=== PATIENT | male | born 1965 | race Two or more races ===

== ENCOUNTER 2020-12-18 10:33 | Inpatient (IN) | payer OTHER ==
[~2020-12-18] VITALS: Ht 167.6 cm; Wt 79.4 kg
[2020-12-22 15:31] VITALS: BP 127/68
[2020-12-22] MEDS ORDERED: ASCO500T10 PO (16:21)
[2020-12-22] MEDS ORDERED: NUT.237L70 PO (16:21)
[2020-12-22] MEDS ORDERED: CYAN-51 PO (16:21)
[2020-12-22] MEDS ORDERED: ACET-73 PO (16:21)
[2020-12-22] MEDS ORDERED: ATEN25TA PO (16:21)
[2020-12-22] MEDS ORDERED: ZINC220T3 PO (16:21)
[2020-12-22] MEDS ORDERED: FAMO20TA8 PO (16:21)
[2020-12-22] MEDS ORDERED: METF-442 PO (16:21)
[2020-12-22] MEDS ORDERED: MULT-594 PO (16:21)
[2020-12-22] MEDS ORDERED: LISI20TA30 PO (16:21)
[2020-12-22] MEDS ORDERED: ATOR40TA PO (16:21)
[2020-12-22] MEDS ORDERED: POLY119P2 PO (16:21)
[2020-12-22] MEDS ORDERED: OXYC5CAP18 PO (16:21)
[2020-12-22] MEDS ORDERED: VANC750F IV (16:21)
[2020-12-22] MEDS ORDERED: DEXTROSE 50% 50 ML DISP.SYRIN IV PRN (16:30)
[2020-12-22] MEDS: INSULIN REGULAR, HUMAN 300 UNIT/3 ML VIAL SQ PRN ×2 (17:16→21:01)
[2020-12-22] MEDS: BLOOD SUGAR DIAGNOSTIC 1 EACH STRIP VI SCH ×2 (17:36→20:59)
[2020-12-22] MEDS ORDERED: MIRALAX 17 GM POWD.PACK PO PRN (17:45)
[2020-12-22] MEDS ORDERED: OXYCODONE HCL 5 MG TABLET PO PRN (17:45)
[2020-12-22] MEDS: METFORMIN HCL 500 MG TABLET PO SCH (18:29)
[2020-12-22] MEDS ORDERED: NALOXONE HCL 0.4 MG/ML AMPUL IV PRN (19:30)
[2020-12-22 20:13] VITALS: BP 121/65
[2020-12-22] MEDS: GLUCERNA SHAKE 237 ML CAN PO SCH (20:59)
[2020-12-22] MEDS: ATORVASTATIN 40 MG TABLET PO SCH (20:59)
[2020-12-22] MEDS: OXYCODONE HCL 20 MG TAB.SR.12H PO SCH (21:02)
--- NOTE | 2020-12-22 21:27 | NUR ---
Received pt resting in bed. AAO x4. No acute distress noted. C/o 10/10 pain on the right foot. New order from Dr. Ramirez, Oxycontin 20mg Q8H around the clock and Dilaudid 4mg PO Q6H PRN. Order to D/C Oxyir 5mg. Carried out order. Due meds given as ordered. PICC line on right upper arm, patent and intact. Safety measures maintained. Call light and personal items within reach. Will continue to monitor.
[2020-12-23] MEDS ORDERED: VANCOMYCIN IV 750 MG in IV DEXTROSE 5% 250 ML IV SCH
[2020-12-23] MEDS: HYDROMORPHONE HCL 2 MG TABLET PO PRN ×3 (00:30→17:23)
[2020-12-23 04:50] VITALS: BP 118/70
[2020-12-23] MEDS: OXYCODONE HCL 20 MG TAB.SR.12H PO SCH ×3 (05:25→21:22)
[2020-12-23] MEDS: BLOOD SUGAR DIAGNOSTIC 1 EACH STRIP VI SCH ×4 (06:31→21:26)
[2020-12-23 07:08] LABS: BASOPHILS # (AUTO) 0.1 K/uL (0.0-8.0); BASOPHILS % (AUTO) 0.5 % (0.0-2.0); EOSINOPHILS # (AUTO) 0.3 K/uL (0.0-0.7); EOSINOPHILS % (AUTO) 1.9 % (0.0-7.0); HEMATOCRIT 24.9 % (36.7-47.1); HEMOGLOBIN 8.2 g/dL (12.5-16.3); LYMPHOCYTES # (AUTO) 2.3 K/uL (20.0-40.0); LYMPHOCYTES % (AUTO) 15.3 % (20.5-51.5); MEAN CORPUSCULAR HEMOGLOBIN 25.5 uug (23.8-33.4); MEAN CORPUSCULAR HGB CONC 33 g/dL (32.5-36.3); MEAN CORPUSCULAR VOLUME 77.8 fL (73.0-96.2); MONOCYTES # (AUTO) 1.9 K/uL (2.0-10.0); MONOCYTES % (AUTO) 12.9 % (0.0-11.0); NEUTROPHILS # (AUTO) 10.2 K/uL (1.8-8.9); NEUTROPHILS % (AUTO) 69.4 % (38.5-71.5); PLATELET COUNT (AUTO) 493 K/uL (152-348); WHITE BLOOD COUNT (AUTO) 14.7 K/uL (3.6-10.2)
[2020-12-23 07:30] LABS: BILIRUBIN,TOTAL 0.3 mg/dL (0.2-1.0); CREATININE 1.4 mg/dL (0.6-1.3); MAGNESIUM 2.3 mg/dL (1.8-2.4); PHOSPHOROUS 3.2 mg/dL (2.5-4.9); POTASSIUM 4.2 mmol/L (3.5-5.1); TOTAL PROTEIN, SERUM 6.5 g/dL (6.4-8.2)
[2020-12-23 07:31] LABS: THYROID STIMULATING HORMONE 6.512 mIU/mL (0.358-3.740)
[2020-12-23 08:16] LABS: VANCOMYCIN,RANDOM 23.1 ug/mL (18.0-26.0)
[2020-12-23] MEDS: METFORMIN HCL 500 MG TABLET PO SCH ×2 (08:22→17:14)
[2020-12-23] MEDS: ZINC SULFATE 220 MG CAPSULE PO SCH (08:22)
[2020-12-23] MEDS: MULTIVITAMINS,THERAPEUTIC TABLET PO SCH (08:23)
[2020-12-23] MEDS: LISINOPRIL 20 MG TABLET PO SCH (08:23)
[2020-12-23] MEDS: ASCORBIC ACID 250 MG TABLET PO SCH (08:24)
[2020-12-23] MEDS: CYANOCOBALAMIN 1,000 MCG TABLET PO SCH (08:24)
[2020-12-23] MEDS: ATENOLOL 25 MG TABLET PO SCH (08:24)
[2020-12-23] MEDS: FAMOTIDINE 20 MG TABLET PO SCH (08:26)
--- NOTE | 2020-12-23 08:30 | NUR ---
INSULIN COVERAGE GIVEN 4U FOR AM BS VERIFIED WITH CHINO ESCOBAR
[2020-12-23 09:21] LABS: EOSINOPHILS % (MANUAL) 1 % (0-8); LYMPHOCYTES % (MANUAL) 18 % (20-40); MONOCYTES % (MANUAL) 10 % (2-10); NEUTROPHILS % (MANUAL) 71 % (42-75)
--- NOTE | 2020-12-23 11:04 | NUR ---
PER [facility] D/AC NOTES. HE HAS A PODIATRY APPT 12/31/20 4499 AT [facility]. HAS TO F/U WITH PODIATRY AND I&D WITHIN 1-2 WEEKS TO SEE IF REQUIRES ADDITIONAL DEBRIDEMENT
[2020-12-23] MEDS: INSULIN REGULAR, HUMAN 300 UNIT/3 ML VIAL SQ PRN ×3 (11:52→21:58)
[2020-12-23 16:28] VITALS: BP 141/69
[2020-12-23] MEDS: VANCOMYCIN IV 1,250 MG in IV DEXTROSE 5% 250 ML IV SCH (17:19)
[2020-12-23 20:26] VITALS: BP 117/64
[2020-12-23] MEDS: ATORVASTATIN 40 MG TABLET PO SCH (21:21)
[2020-12-23] MEDS: GLUCERNA SHAKE 237 ML CAN PO SCH (21:22)
[2020-12-24 04:36] VITALS: BP 107/58
[2020-12-24] MEDS: BLOOD SUGAR DIAGNOSTIC 1 EACH STRIP VI SCH ×4 (06:44→20:51)
[2020-12-24] MEDS: OXYCODONE HCL 20 MG TAB.SR.12H PO SCH ×3 (06:47→21:00)
--- NOTE | 2020-12-24 07:01 | NUR ---
End of Shift: Patient is AOx4. No acute distress noted. C/o 7/10 pain on the right foot, gave Oxycotin, pain was relieved. Due meds given as ordered and tolerated well. PICC line on right upper arm, patent and intact. Safety measures maintained. Call light and personal items within reach. Will endorse accordingly.
[2020-12-24 08:00] VITALS: BP 100/55
[2020-12-24] MEDS: ZINC SULFATE 220 MG CAPSULE PO SCH (08:49)
[2020-12-24] MEDS: FAMOTIDINE 20 MG TABLET PO SCH (08:49)
[2020-12-24] MEDS: METFORMIN HCL 500 MG TABLET PO SCH ×2 (08:50→17:31)
[2020-12-24] MEDS: CYANOCOBALAMIN 1,000 MCG TABLET PO SCH (08:50)
[2020-12-24] MEDS: MULTIVITAMINS,THERAPEUTIC TABLET PO SCH (08:50)
[2020-12-24] MEDS: ASCORBIC ACID 250 MG TABLET PO SCH (08:50)
[2020-12-24] MEDS: MIRALAX 17 GM POWD.PACK PO SCH (08:50)
[2020-12-24] MEDS: INSULIN REGULAR, HUMAN 300 UNIT/3 ML VIAL SQ PRN ×4 (08:57→20:52)
[2020-12-24] MEDS: LISINOPRIL 20 MG TABLET PO SCH (09:00)
[2020-12-24] MEDS: ATENOLOL 25 MG TABLET PO SCH (09:00)
[2020-12-24 09:13] LABS: CREATININE 1.6 mg/dL (0.6-1.3); POTASSIUM 4.7 mmol/L (3.5-5.1)
--- NOTE | 2020-12-24 10:57 | NUR ---
Patient is alert and oriented x 4, denies of any pain, cooperative upon assessment. PICC line on LUIS ANTONIO patent and intact. Went off the unit for therapy and came back after an hour tolerated well. Patient on room saturating at 95% T: 97.9 axillary told patient that I will be back in 15 mins to check his temp again. skin is warm to touch.
[2020-12-24 15:09] LABS: *BILIRUBIN,URIN NEGATIVE (NEGATIVE); *BLOOD, URINE NEGATIVE (NEGATIVE); *CLARITY,URINE CLEAR (CLEAR); *COLOR,URINE YELLOW (YELLOW); *KETONES,URINE NEGATIVE (NEGATIVE); LEUKOCYTE ESTERASE ,URINE NEGATIVE (NEGATIVE); NITRITE, URINE NEGATIVE (NEGATIVE); PH,URINE 5.5 (5.0-8.0); UGLUCOSE NEGATIVE (NEGATIVE)
[2020-12-24 15:15] LABS: *CREATININE,URINE 112.4 mg/dL (30-125); *URINE TOTAL PROTEIN RANDOM 176.5 mg/dL (<150/24HR)
[2020-12-24 16:30] VITALS: BP 142/71
[2020-12-24] MEDS: VANCOMYCIN IV 1,250 MG in IV DEXTROSE 5% 250 ML IV SCH (17:59)
[2020-12-24] MEDS: HYDROMORPHONE HCL 2 MG TABLET PO PRN (18:56)
[2020-12-24 20:30] VITALS: BP 132/68
[2020-12-24 20:40] LABS: BACTERIA,URINE NONE SEEN /HPF (NONE SEEN); MUCUS,URINE FEW /LPF (0-FEW); RBC,URINE 0-3 /HPF (0-3); SQUAMOUS EPITHELIAL CELL,UR FEW /HPF (NONE SEEN); URINE AMORPHOUS URATE MODERATE /HPF
[2020-12-24] MEDS: ATORVASTATIN 40 MG TABLET PO SCH (20:48)
[2020-12-24] MEDS: GLUCERNA SHAKE 237 ML CAN PO SCH (20:53)
--- NOTE | 2020-12-24 22:30 | NUR ---
Patient is alert and oriented x 4, c/o 8/10 pain, cooperative upon assessment. PICC line on LUIS ANTONIO patent and intact infusing antibiotics, no adverse reactions noted. VSS. All due medication administered and tolerated well. All need attended too. Safety measures maintained. Call light within reach will continue plan of care.
[2020-12-25 04:42] VITALS: BP 126/63
[2020-12-25] MEDS: OXYCODONE HCL 20 MG TAB.SR.12H PO SCH ×3 (05:59→21:11)
[2020-12-25] MEDS: BLOOD SUGAR DIAGNOSTIC 1 EACH STRIP VI SCH ×4 (06:04→20:46)
[2020-12-25 06:51] LABS: BASOPHILS # (AUTO) 0.1 K/uL (0.0-8.0); BASOPHILS % (AUTO) 0.7 % (0.0-2.0); EOSINOPHILS # (AUTO) 0.2 K/uL (0.0-0.7); EOSINOPHILS % (AUTO) 1.6 % (0.0-7.0); HEMATOCRIT 23.8 % (36.7-47.1); HEMOGLOBIN 7.6 g/dL (12.5-16.3); LYMPHOCYTES # (AUTO) 1.3 K/uL (20.0-40.0); LYMPHOCYTES % (AUTO) 12.4 % (20.5-51.5); MEAN CORPUSCULAR HEMOGLOBIN 24.5 uug (23.8-33.4); MEAN CORPUSCULAR HGB CONC 32 g/dL (32.5-36.3); MEAN CORPUSCULAR VOLUME 76.9 fL (73.0-96.2); MONOCYTES # (AUTO) 1.2 K/uL (2.0-10.0); MONOCYTES % (AUTO) 11.3 % (0.0-11.0); PLATELET COUNT (AUTO) 407 K/uL (152-348)
[2020-12-25 06:56] LABS: BILIRUBIN,TOTAL 0.4 mg/dL (0.2-1.0); CREATININE 1.7 mg/dL (0.6-1.3); MAGNESIUM 2.3 mg/dL (1.8-2.4); PHOSPHOROUS 3.9 mg/dL (2.5-4.9); POTASSIUM 4.8 mmol/L (3.5-5.1); TOTAL PROTEIN, SERUM 6.9 g/dL (6.4-8.2); WHITE BLOOD COUNT (AUTO) 10.8 K/uL (3.6-10.2)
--- NOTE | 2020-12-25 07:26 | NUR ---
Lab notified me about albumin results of 1.5, will endorse.
[2020-12-25 08:00] VITALS: BP 133/70
[2020-12-25] MEDS: METFORMIN HCL 500 MG TABLET PO SCH ×2 (08:54→17:26)
[2020-12-25] MEDS: MULTIVITAMINS,THERAPEUTIC TABLET PO SCH (08:54)
[2020-12-25] MEDS: FAMOTIDINE 20 MG TABLET PO SCH (08:54)
[2020-12-25] MEDS: CYANOCOBALAMIN 1,000 MCG TABLET PO SCH (08:54)
[2020-12-25] MEDS: MIRALAX 17 GM POWD.PACK PO SCH (08:54)
[2020-12-25] MEDS: LISINOPRIL 20 MG TABLET PO SCH (08:55)
[2020-12-25] MEDS: ZINC SULFATE 220 MG CAPSULE PO SCH (08:55)
[2020-12-25] MEDS: ASCORBIC ACID 250 MG TABLET PO SCH (08:55)
[2020-12-25] MEDS: ATENOLOL 25 MG TABLET PO SCH (08:56)
[2020-12-25] MEDS: INSULIN REGULAR, HUMAN 300 UNIT/3 ML VIAL SQ PRN ×4 (08:58→20:54)
--- NOTE | 2020-12-25 10:00 | NUR ---
Received pt in bed, able to verbalize needs to this insurance underwriter sales in Georgian and Dutch. No acute distress, pt denies pain at this time. VSS. Pt seen participating in physical therapy, tolerated well. Pt presents with redness on left leg, right arm, denies itchiness. Per pt has been there for [address] on right foot. Wound care consult requested. LUIS ANTONIO midline patent and intact. Call light and belongings in reach. Will continue to monitor.
--- NOTE | 2020-12-25 12:06 | NUR ---
WOUND CARE CONSULT: PT SEEN FOR SKIN ASSESSMENT AND NOTED TO HAVE EDEMA TO BILATERAL LOWER LEGS WITH SOME INTACT AREAS OF EDEMA AND DISCOLORATION (INTACT) TO LEFT ANTERIOR ANKLE AREA. THERE IS A SURGICAL DRESSING TO RT FOOT WHICH IS DRY AND INTACT, PRESENT ON ADMISSION. SOME SKIN DISCOLORATION, TINY RED SPOTS NOTED TO WAIST AREA, LEFT CHEST WALL AREA AND LEFT LOWER LEG. DEFER TO PMD FOR SKIN CONDITION. RECOMMENDATIONS MADE FOR SKIN PROTECTION. DISCUSSED WITH NURSING STAFF. DPM CONSULT CALLED TO DR LOPEZ. DISCUSSED WITH NURSING STAFF AND EVENTS MANAGER. IN AGREEMENT WITH PLAN OF CARE.
--- NOTE | 2020-12-25 13:00 | NUR ---
Dr Claudio Moya at bedside this afternoon, examined pt, aware of redness noted. Dr. Snyder made aware of Albumin of 1.5, no new orders. Pertinent labs told and report given to Dr. Snyder, new orders in place.
[2020-12-25 15:12] VITALS: BP 123/63
--- NOTE | 2020-12-25 15:45 | NUR ---
Dr. Moffett at bedside this afternoon, examined pt. New orders in place. Continue to monitor.
[2020-12-25] MEDS ORDERED: CEFTRIAXONE 1 G in IV DEXTROSE 5% 50 ML IV SCH (18:30)
--- NOTE | 2020-12-25 18:45 | NUR ---
Dr. Soriano at bedside, examined pt.
[2020-12-25] MEDS: VANCOMYCIN IV 1,000 MG in IV DEXTROSE 5% 250 ML IV SCH (18:55)
--- NOTE | 2020-12-25 19:00 | NUR ---
Pts daughter Marla at bedside this afternoon. Per daughter, pt appeared to have some confusion. Dr. Snyder notified, and that pt's daughter would like to speak with him.
--- NOTE | 2020-12-25 19:10 | NUR ---
EOSS: Pt in bed, no acute distres, no reports of pain/discomfort at this time. All needs met at this time. VSS. Due medications given per order. Per pharmacy, Vanco trough 19.9, Vanco dose adjusted, OK to give per pharmacy. LUIS ANTONIO PICC line patent and intact. Per pt, no BM today. Call light and belongings within reach. Will endorse care to slot shift manager nurse.
[2020-12-25 20:30] VITALS: BP 131/63
[2020-12-25] MEDS: METRONIDAZOLE 500 MG/NS 100ML 500 MG in PREMIXED 1 EACH IV SCH (20:43)
[2020-12-25] MEDS: ATORVASTATIN 40 MG TABLET PO SCH (20:45)
[2020-12-25] MEDS: GLUCERNA SHAKE 237 ML CAN PO SCH (20:47)
[2020-12-25] MEDS: MUPIROCIN 2% OINT 22 GM TUBE TP SCH (20:47)
[2020-12-25] MEDS: CEFTRIAXONE 1 G in IV DEXTROSE 5% 50 ML IV SCH (21:18)
--- NOTE | 2020-12-26 00:53 | NUR ---
AAOx4 Needs attended. On IV ABT given as scheduled. Admitted for sepsis. Patient had I & D and partial amputation of right metatarsal. Dressing intact. Right upper arm PICC intact, flushed and patent. On pain management, Oxycontin 20 mg given as scheduled. No distress noted. Voiding well. VSS.
[2020-12-26] MEDS: METRONIDAZOLE 500 MG/NS 100ML 500 MG in PREMIXED 1 EACH IV SCH ×3 (03:50→21:09)
[2020-12-26 04:30] VITALS: BP 122/64
[2020-12-26] MEDS: OXYCODONE HCL 20 MG TAB.SR.12H PO SCH (05:28)
[2020-12-26] MEDS: BLOOD SUGAR DIAGNOSTIC 1 EACH STRIP VI SCH ×4 (06:35→21:03)
--- NOTE | 2020-12-26 07:00 | NUR ---
End of shift notes: Quiet night. AAOx4 On IV ABT given as scheduled. Tolerated well. No ill effects noted. Will monitor patient. Pain meds given at scheduled times. Relief noted. Right foot dressing intact. VSS.
[2020-12-26 07:16] LABS: CREATININE 1.8 mg/dL (0.6-1.3); POTASSIUM 5.1 mmol/L (3.5-5.1)
[2020-12-26] MEDS: INSULIN REGULAR, HUMAN 300 UNIT/3 ML VIAL SQ PRN ×4 (08:41→21:07)
[2020-12-26] MEDS: FAMOTIDINE 20 MG TABLET PO SCH (08:42)
[2020-12-26] MEDS: ZINC SULFATE 220 MG CAPSULE PO SCH (08:42)
[2020-12-26] MEDS: CYANOCOBALAMIN 1,000 MCG TABLET PO SCH (08:42)
[2020-12-26] MEDS: MULTIVITAMINS,THERAPEUTIC TABLET PO SCH (08:43)
[2020-12-26] MEDS: ASCORBIC ACID 250 MG TABLET PO SCH (08:43)
[2020-12-26] MEDS: METFORMIN HCL 500 MG TABLET PO SCH (08:43)
[2020-12-26] MEDS: MIRALAX 17 GM POWD.PACK PO SCH (08:44)
[2020-12-26] MEDS: LISINOPRIL 20 MG TABLET PO SCH (08:44)
[2020-12-26] MEDS: MUPIROCIN 2% OINT 22 GM TUBE TP SCH ×2 (08:46→21:08)
[2020-12-26] MEDS: ATENOLOL 25 MG TABLET PO SCH (09:43)
[2020-12-26] MEDS: SERTRALINE HCL 50 MG TABLET PO SCH (09:50)
--- NOTE | 2020-12-26 10:30 | NUR ---
Received pt in bed, able to verbalize needs to this adjusto writer operator in Serbian/Maori. No acute distress, pt denies pain at this time. VSS. Due medications given per order. LUIS ANTONIO PICC patent and intact. Call light and belongings in reach. Will continue to monitor.
[2020-12-26 10:45] VITALS: BP 153/76
--- NOTE | 2020-12-26 11:00 | NUR ---
Dr. Sierra at bedside this am, new orders in place. Refer to consult note.
[2020-12-26 11:07] LABS: A/G RATIO 0.4 (0.7-1.7); ALBUMIN 1.7 g/dL (2.9-4.4); ALPHA-1-GLOBULIN 0.4 g/dL (0.0-0.4); ALPHA-2-GLOBULIN 1.1 g/dL (0.4-1.0); GAMMA GLOBULIN 1.4 g/dL (0.4-1.8); M-SPIKE Not Observed g/dL (Not Observed)
--- NOTE | 2020-12-26 13:00 | NUR ---
Dr. Claudio Floresapaapryl at bedside this am, report given. Dr. Snyder aware of pertinent labs and that results of Extremity Venous and Extremity Arterial studies posted. Pt's daughter Luh's number given to Dr. Snyder. Continue to monitor.
--- NOTE | 2020-12-26 15:00 | NUR ---
Dr. Ramirez with new order for pain medication. Will carry out and monitor for effectiveness.
[2020-12-26] MEDS: OXYCODONE HCL 10 MG TAB.SR.12H PO SCH ×2 (15:43→21:08)
[2020-12-26 16:15] VITALS: BP 115/58
--- NOTE | 2020-12-26 16:50 | NUR ---
Dr. Moffett made aware of Extremity Venous and Extremity arterial results. Referred Dr. Moffett to [facility] Concrete Products Dispatcher Bam for continuation of care discussion. Refer to Concrete Products Dispatcher notes.
[2020-12-26] MEDS: VANCOMYCIN IV 1,000 MG in IV DEXTROSE 5% 250 ML IV SCH (17:04)
--- NOTE | 2020-12-26 17:30 | NUR ---
Pt's daughter Luh at bedside. Discussed nursing care with pt and daughter. Luh stated would like to speak with Dr. Sierra, contact information provided. Information on pt's f/u appt. provided.
--- NOTE | 2020-12-26 19:00 | NUR ---
EOSS: Pt in bed, no acute distress. All needs met at this time. VSS. Due medications given per order. Pt stated scheduled Oxycontin effective for pain, 2/10 on adult scale at this time. LUIS ANTONIO PICC line patent and intact. Wound care provided per order, R big toe wound measures 7.5cm x 2.5 cm by UTD. R bottom of foot measures 9 cm x 6.5 cm. Photos taken. Call light and belongings within reach. Will endorse care to cnc machinist 2nd shift nurse.
[2020-12-26 20:30] VITALS: BP 143/67
[2020-12-26] MEDS: ATORVASTATIN 40 MG TABLET PO SCH (20:56)
[2020-12-26] MEDS: QUETIAPINE FUMARATE 25 MG TABLET PO SCH (20:56)
[2020-12-26] MEDS: CEFTRIAXONE 1 G in IV DEXTROSE 5% 50 ML IV SCH (20:58)
[2020-12-26] MEDS: GLUCERNA SHAKE 237 ML CAN PO SCH (21:09)
--- NOTE | 2020-12-27 00:25 | NUR ---
AAOx4 Fall precautions maintained. VSS. Right upper PICC line flushed and patent. IV ABT given as scheduled. No side effects noted. Attended to needs. Continent/incontinent of urine at times. No complaints presented during the shift. Will monitor patient.
[2020-12-27] MEDS: METRONIDAZOLE 500 MG/NS 100ML 500 MG in PREMIXED 1 EACH IV SCH ×3 (03:39→20:34)
[2020-12-27 04:40] VITALS: BP 111/61
[2020-12-27] MEDS: OXYCODONE HCL 10 MG TAB.SR.12H PO SCH ×3 (05:24→21:43)
[2020-12-27 05:53] LABS: *OCCULT BLOOD STOOL NEGATIVE (NEGATIVE)
[2020-12-27] MEDS: BLOOD SUGAR DIAGNOSTIC 1 EACH STRIP VI SCH ×4 (06:35→21:54)
--- NOTE | 2020-12-27 06:36 | NUR ---
End of shift notes: Quiet night. AAOx3-4 VSS. No acute distress noted. Incontinent of BM x2 Kept clean and dry. Stool for occult blood sent. Denies any pain at this time. Oxycontin 10 mg given as scheduled. Right upper PICC intact, IV ABT given as scheduled. All needs attended and met. Fall precautions maintained.
[2020-12-27 07:06] LABS: CREATININE 1.9 mg/dL (0.6-1.3); POTASSIUM 4.8 mmol/L (3.5-5.1)
[2020-12-27 08:39] VITALS: BP 123/60
[2020-12-27] MEDS: MULTIVITAMINS,THERAPEUTIC TABLET PO SCH (09:02)
[2020-12-27] MEDS: MIRALAX 17 GM POWD.PACK PO SCH (09:02)
[2020-12-27] MEDS: CYANOCOBALAMIN 1,000 MCG TABLET PO SCH (09:02)
[2020-12-27] MEDS: FAMOTIDINE 20 MG TABLET PO SCH (09:02)
[2020-12-27] MEDS: ATENOLOL 25 MG TABLET PO SCH (09:02)
[2020-12-27] MEDS: ZINC SULFATE 220 MG CAPSULE PO SCH (09:02)
[2020-12-27] MEDS: SERTRALINE HCL 50 MG TABLET PO SCH (09:03)
[2020-12-27] MEDS: MUPIROCIN 2% OINT 22 GM TUBE TP SCH ×2 (09:05→21:44)
[2020-12-27] MEDS: INSULIN REGULAR, HUMAN 300 UNIT/3 ML VIAL SQ PRN ×4 (09:06→21:51)
[2020-12-27] MEDS: ASCORBIC ACID 250 MG TABLET PO SCH (09:12)
[2020-12-27 15:33] VITALS: BP 126/64
[2020-12-27] MEDS: VANCOMYCIN IV 1,000 MG in IV DEXTROSE 5% 250 ML IV SCH (17:38)
[2020-12-27 20:35] VITALS: BP 115/62
[2020-12-27] MEDS: QUETIAPINE FUMARATE 25 MG TABLET PO SCH (21:00)
[2020-12-27] MEDS: GLUCERNA SHAKE 237 ML CAN PO SCH (21:00)
--- NOTE | 2020-12-27 21:30 | NUR ---
Relayed to Dr. Ramirez patient's daughter, Sam, concern regarding pain medication being too strong causing drowsiness. Relayed to MD that patient was also started on Seroquel and Zoloft on 12/26/20. Per Dr. Ramriez, oxycontin dosage was reduced and drowsiness may be from psych meds. Called patient's daughter and explained. patient's daughter requested to hold off on giving seroquel for tonight and would like to speak with psych MD tomorrow. Will endorse to AM RN accordingly.
[2020-12-27] MEDS: ATORVASTATIN 40 MG TABLET PO SCH (21:42)
[2020-12-27] MEDS: CEFTRIAXONE 1 G in IV DEXTROSE 5% 50 ML IV SCH (21:43)
[2020-12-27] MEDS: IV NS 1000 ML 1,000 ML IV PRN (21:56)
[2020-12-28 02:35] LABS: *BILIRUBIN,URIN NEGATIVE (NEGATIVE); *BLOOD, URINE NEGATIVE (NEGATIVE); *CLARITY,URINE CLEAR (CLEAR); *COLOR,URINE YELLOW (YELLOW); *KETONES,URINE NEGATIVE (NEGATIVE); LEUKOCYTE ESTERASE ,URINE NEGATIVE (NEGATIVE); NITRITE, URINE NEGATIVE (NEGATIVE); UGLUCOSE NEGATIVE (NEGATIVE)
[2020-12-28 02:40] LABS: BACTERIA,URINE NONE SEEN /HPF (NONE SEEN); SQUAMOUS EPITHELIAL CELL,UR MODERATE /HPF (NONE SEEN); WBC,URINE 0-3 /HPF (0-3)
[2020-12-28 02:44] LABS: *CREATININE,URINE 41.8 mg/dL (30-125); *URINE TOTAL PROTEIN RANDOM 54.4 mg/dL (<150/24HR)
[2020-12-28] MEDS: METRONIDAZOLE 500 MG/NS 100ML 500 MG in PREMIXED 1 EACH IV SCH ×2 (04:32→12:45)
[2020-12-28 04:35] VITALS: BP 140/72
[2020-12-28] MEDS: OXYCODONE HCL 10 MG TAB.SR.12H PO SCH ×3 (05:16→21:03)
[2020-12-28] MEDS: BLOOD SUGAR DIAGNOSTIC 1 EACH STRIP VI SCH ×4 (06:31→20:42)
[2020-12-28 08:00] VITALS: BP 153/74
[2020-12-28] MEDS: MIRALAX 17 GM POWD.PACK PO SCH (08:46)
[2020-12-28] MEDS: ZINC SULFATE 220 MG CAPSULE PO SCH (08:46)
[2020-12-28] MEDS: ACETAMINOPHEN 325 MG TABLET PO PRN (08:47)
[2020-12-28] MEDS: ASCORBIC ACID 250 MG TABLET PO SCH (08:47)
[2020-12-28] MEDS: MULTIVITAMINS,THERAPEUTIC TABLET PO SCH (08:47)
[2020-12-28] MEDS: CYANOCOBALAMIN 1,000 MCG TABLET PO SCH (08:47)
[2020-12-28] MEDS: FAMOTIDINE 20 MG TABLET PO SCH (08:47)
[2020-12-28] MEDS: ATENOLOL 25 MG TABLET PO SCH (08:47)
[2020-12-28] MEDS: SERTRALINE HCL 50 MG TABLET PO SCH (08:48)
[2020-12-28] MEDS: MUPIROCIN 2% OINT 22 GM TUBE TP SCH ×2 (08:48→20:42)
[2020-12-28] MEDS: INSULIN REGULAR, HUMAN 300 UNIT/3 ML VIAL SQ PRN ×4 (08:49→20:46)
[2020-12-28 10:15] LABS: BASOPHILS # (AUTO) 0.1 K/uL (0.0-8.0); BASOPHILS % (AUTO) 0.6 % (0.0-2.0); EOSINOPHILS # (AUTO) 0.2 K/uL (0.0-0.7); EOSINOPHILS % (AUTO) 1.7 % (0.0-7.0); HEMATOCRIT 24.4 % (36.7-47.1); HEMOGLOBIN 8.1 g/dL (12.5-16.3); LYMPHOCYTES # (AUTO) 0.6 K/uL (20.0-40.0); LYMPHOCYTES % (AUTO) 6.1 % (20.5-51.5); MEAN CORPUSCULAR HEMOGLOBIN 25.2 uug (23.8-33.4); MEAN CORPUSCULAR HGB CONC 33 g/dL (32.5-36.3); MEAN CORPUSCULAR VOLUME 76.1 fL (73.0-96.2); MONOCYTES # (AUTO) 0.8 K/uL (2.0-10.0); MONOCYTES % (AUTO) 8.2 % (0.0-11.0); NEUTROPHILS # (AUTO) 8.4 K/uL (1.8-8.9); NEUTROPHILS % (AUTO) 83.4 % (38.5-71.5); PLATELET COUNT (AUTO) 450 K/uL (152-348); RED BLOOD CELL COUNT(AUTO) 3.21 MIL/uL (4.06-5.63); WHITE BLOOD COUNT (AUTO) 10.1 K/uL (3.6-10.2)
[2020-12-28 10:50] LABS: CREATININE 1.9 mg/dL (0.6-1.3); POTASSIUM 5.1 mmol/L (3.5-5.1)
[2020-12-28] MEDS: HYDROMORPHONE HCL 2 MG TABLET PO PRN ×2 (12:24→23:15)
--- NOTE | 2020-12-28 15:37 | NUR ---
patient is alert, oriented x4, no sob,resp even nonlabored, skin warm and dry to touch, right foot dressing is done, status post right big toe amputation, no drainage noted, no odor noted, right planter foot noted with necrotic tissue, patient is going or follow up apt with surgeon on Thursday and for angiogram in [place] on thursday, no distress noted
[2020-12-28 16:00] VITALS: BP 168/83
--- NOTE | 2020-12-28 17:49 | NUR ---
systolic blood pressure 163/[address] del cid, per MD griggs for now, continue to monitor, patient denied headach, or any other symptom
[2020-12-28] MEDS: VANCOMYCIN IV 1,000 MG in IV DEXTROSE 5% 250 ML IV SCH (18:22)
[2020-12-28 19:45] VITALS: BP 152/84
[2020-12-28] MEDS: ATORVASTATIN 40 MG TABLET PO SCH (20:41)
[2020-12-28] MEDS: QUETIAPINE FUMARATE 25 MG TABLET PO SCH (20:41)
[2020-12-28] MEDS: GLUCERNA SHAKE 237 ML CAN PO SCH (20:42)
[2020-12-28] MEDS: CEFTRIAXONE 1 G in IV DEXTROSE 5% 50 ML IV SCH (20:43)
[2020-12-28] MEDS: METRONIDAZOLE 500 MG TABLET PO SCH (21:03)
[2020-12-28] MEDS: IV NS 1000 ML 1,000 ML IV PRN (21:04)
--- NOTE | 2020-12-28 21:22 | NUR ---
Received pt resting in bed and watching tv. AAO x4. No acute distress noted. C/o 03/23 pain on the right foot, schedule pain med and other due meds given as ordered. LUIS ANTONIO PICC line, patent and intact. Safety measures maintained. Call light and personal items within reach. Will continue to monitor.
[2020-12-29 04:50] VITALS: BP 160/86
[2020-12-29] MEDS: METRONIDAZOLE 500 MG TABLET PO SCH ×3 (05:00→22:13)
[2020-12-29] MEDS: OXYCODONE HCL 10 MG TAB.SR.12H PO SCH (05:00)
[2020-12-29] MEDS: BLOOD SUGAR DIAGNOSTIC 1 EACH STRIP VI SCH ×4 (06:33→21:00)
[2020-12-29 08:00] VITALS: BP 123/75
[2020-12-29] MEDS: INSULIN REGULAR, HUMAN 300 UNIT/3 ML VIAL SQ PRN ×4 (08:09→22:11)
[2020-12-29] MEDS: FAMOTIDINE 20 MG TABLET PO SCH (08:13)
[2020-12-29] MEDS: CYANOCOBALAMIN 1,000 MCG TABLET PO SCH (08:13)
[2020-12-29] MEDS: MULTIVITAMINS,THERAPEUTIC TABLET PO SCH (08:13)
[2020-12-29] MEDS: ZINC SULFATE 220 MG CAPSULE PO SCH (08:13)
[2020-12-29] MEDS: ASCORBIC ACID 250 MG TABLET PO SCH (08:13)
[2020-12-29] MEDS: ATENOLOL 25 MG TABLET PO SCH (08:15)
[2020-12-29] MEDS: SERTRALINE HCL 50 MG TABLET PO SCH (08:16)
[2020-12-29] MEDS: MIRALAX 17 GM POWD.PACK PO SCH (08:16)
[2020-12-29] MEDS: MUPIROCIN 2% OINT 22 GM TUBE TP SCH ×2 (08:17→21:00)
[2020-12-29] MEDS: HYDROMORPHONE HCL 2 MG TABLET PO PRN ×2 (15:05→22:31)
[2020-12-29 15:48] VITALS: BP 177/88
--- NOTE | 2020-12-29 16:17 | NUR ---
Patient is alert, oriented x4, no sob, resp even nonlabored, skin warm and dry to touch, no distress noted, right foot dressing changed, no drainage or malodor at amputated site, however planter side of foot is with black skin ( necrosis tissue), left lower extremity noted with small open wound, tx done with Bactroban as ordered, continue to monitor
[2020-12-29] MEDS: IV NS 1000 ML 1,000 ML IV PRN (17:44)
[2020-12-29 18:03] VITALS: BP 145/88
[2020-12-29 20:36] VITALS: BP 169/80
[2020-12-29] MEDS: GLUCERNA SHAKE 237 ML CAN PO SCH (21:00)
[2020-12-29] MEDS: QUETIAPINE FUMARATE 25 MG TABLET PO SCH (21:00)
[2020-12-29] MEDS: ATORVASTATIN 40 MG TABLET PO SCH (21:00)
[2020-12-29] MEDS: CEFTRIAXONE 1 G in IV DEXTROSE 5% 50 ML IV SCH (21:54)
--- NOTE | 2020-12-29 22:00 | NUR ---
Received patient resting in bed watching television, AAO x4. No acute distress noted. C/o 6/10 pain on the right foot, schedule pain med and other due Pain medication administered as ordered. Accu-check done BS 256 insulin administered as per sliding scale. LUIS ANTONIO PICC line patent and intac continue on IVF and infused well. Assisted patient to bathroom with walker and assist back to bed, Call light and personal items within reach. Safety measures maintained. Will continue to monitor.
[2020-12-30] MEDS: IV NS 1000 ML 1,000 ML IV PRN (04:03)
[2020-12-30] MEDS: ACETAMINOPHEN 325 MG TABLET PO PRN (05:17)
--- NOTE | 2020-12-30 05:20 | NUR ---
Patient slept intermittently due to pain, non pharmacological efforts and PRN break through pain medication administered to relive pain,PRN pain meds helped encouraged fluids intake as tolerated accu-check done, BS- 216 will endorse am shift to provide insulin as per sliding scale patient refused seroquel qhs, ( held ) risk and benefits discussed respected patient rights. Will continue monitoring and endorse AM shift accordingly. safety precaution observed all time. Call light with in reach.
[2020-12-30 05:23] VITALS: BP 139/68
[2020-12-30] MEDS: METRONIDAZOLE 500 MG TABLET PO SCH ×2 (06:18→13:45)
[2020-12-30] MEDS: HYDROMORPHONE HCL 2 MG TABLET PO PRN ×3 (06:20→22:35)
[2020-12-30 06:33] LABS: CREATININE 1.5 mg/dL (0.6-1.3); POTASSIUM 4.4 mmol/L (3.5-5.1)
[2020-12-30] MEDS: BLOOD SUGAR DIAGNOSTIC 1 EACH STRIP VI SCH ×4 (06:46→20:50)
[2020-12-30 08:00] VITALS: BP 158/77
[2020-12-30] MEDS: CYANOCOBALAMIN 1,000 MCG TABLET PO SCH (08:15)
[2020-12-30] MEDS: ZINC SULFATE 220 MG CAPSULE PO SCH (08:15)
[2020-12-30] MEDS: MULTIVITAMINS,THERAPEUTIC TABLET PO SCH (08:15)
[2020-12-30] MEDS: FAMOTIDINE 20 MG TABLET PO SCH (08:15)
[2020-12-30] MEDS: ASCORBIC ACID 250 MG TABLET PO SCH (08:15)
[2020-12-30] MEDS: ATENOLOL 25 MG TABLET PO SCH (08:16)
[2020-12-30] MEDS: MIRALAX 17 GM POWD.PACK PO SCH ×2 (08:16→08:28)
[2020-12-30] MEDS: INSULIN REGULAR, HUMAN 300 UNIT/3 ML VIAL SQ PRN ×4 (08:18→20:52)
[2020-12-30] MEDS: MUPIROCIN 2% OINT 22 GM TUBE TP SCH ×2 (08:19→20:53)
[2020-12-30] MEDS: SERTRALINE HCL 50 MG TABLET PO SCH (08:27)
--- NOTE | 2020-12-30 09:34 | NUR ---
Received pt in bed, A&Ox4, able to verbalize needs. No acute distress. Pt states 0/10 pain on adult scale at this time. LUIS ANTONIO PICC patent and intact. Due medications given per order. Pt refused Miralax, Zoloft this am, explained purpose, risks, benefits, pt right to refuse respected. SENIOR FIRMWARE ENGINEER Jerome Vail at bedside with new orders, will carry out. Pt assisted safely to chair with OT to participate in therapy. Safety measures and fall precautions in place. Call light and belongings within reach. Will continue to monitor.
[2020-12-30 14:00] VITALS: BP 151/79
--- NOTE | 2020-12-30 17:15 | NUR ---
Dr. Coleman Soriano with new orders to prepare for pt's angiogram tomorrow, will endorse to qa consultant nurse.
--- NOTE | 2020-12-30 18:48 | NUR ---
EOSS: Assisted pt safely from bed to chair for dinner, daughter Luh at bedside. Discussed nursing care provided with pt and daughter. Pt in no acute distress, denies pain/discomfort at this time. Due medications given per order, no a/r noted. Wound care provided per order, both heels offloaded. Per pt, 2 BMs today. All needs met at this time. Call light and belongings within reach. Safety measures maintained. Will endorse care to paper final inspector nurse.
[2020-12-30] MEDS ORDERED: VANCOMYCIN IV 1,000 MG in IV DEXTROSE 5% 250 ML IV SCH (19:00)
[2020-12-30 20:09] VITALS: BP 155/80
[2020-12-30] MEDS: GLUCERNA SHAKE 237 ML CAN PO SCH (20:49)
[2020-12-30] MEDS: ATORVASTATIN 40 MG TABLET PO SCH (20:49)
[2020-12-30] MEDS: QUETIAPINE FUMARATE 25 MG TABLET PO SCH (20:50)
[2020-12-30] MEDS ORDERED: VANCOMYCIN IV 200 ML ONE (22:34)
[2020-12-31] MEDS ORDERED: IV NS 1000 ML 1,000 ML IV ONE
--- NOTE | 2020-12-31 02:36 | NUR ---
Received pt resting in bed. AAO x4. No acute distress noted. C/o 03/23 pain, Administered Dilaudid PRN, effective. All due medications administered and tolerated well. BS-310, covered per insulin sliding scale. patient refused Seroquel, risk and benefits discussed. Safety measures maintained. VSS. Right upper PICC line flushed and patent. IV ABT given as scheduled. No adverse effects noted. Attended to needs. Will continue plan of care.
[2020-12-31 04:26] VITALS: BP 152/64
[2020-12-31 06:03] LABS: BASOPHILS # (AUTO) 0.1 K/uL (0.0-8.0); BASOPHILS % (AUTO) 1.3 % (0.0-2.0); EOSINOPHILS # (AUTO) 0.2 K/uL (0.0-0.7); EOSINOPHILS % (AUTO) 1.7 % (0.0-7.0); HEMATOCRIT 23.9 % (36.7-47.1); HEMOGLOBIN 7.8 g/dL (12.5-16.3); LYMPHOCYTES # (AUTO) 1.4 K/uL (20.0-40.0); LYMPHOCYTES % (AUTO) 14.9 % (20.5-51.5); MEAN CORPUSCULAR HEMOGLOBIN 25.1 uug (23.8-33.4); MEAN CORPUSCULAR HGB CONC 33 g/dL (32.5-36.3); MEAN CORPUSCULAR VOLUME 76.8 fL (73.0-96.2); MONOCYTES % (AUTO) 9.9 % (0.0-11.0); NEUTROPHILS % (AUTO) 72.2 % (38.5-71.5); PLATELET COUNT (AUTO) 531 K/uL (152-348); RED BLOOD CELL COUNT(AUTO) 3.11 MIL/uL (4.06-5.63); WHITE BLOOD COUNT (AUTO) 9.7 K/uL (3.6-10.2)
[2020-12-31] MEDS: BLOOD SUGAR DIAGNOSTIC 1 EACH STRIP VI SCH ×4 (06:21→21:00)
[2020-12-31 06:36] LABS: CREATININE 1.4 mg/dL (0.6-1.3); MAGNESIUM 2.1 mg/dL (1.8-2.4); PHOSPHOROUS 3.9 mg/dL (2.5-4.9); POTASSIUM 4.3 mmol/L (3.5-5.1)
[2020-12-31 07:54] VITALS: BP 175/89
[2020-12-31] MEDS: FAMOTIDINE 20 MG TABLET PO SCH (08:14)
[2020-12-31] MEDS: MIRALAX 17 GM POWD.PACK PO SCH (08:14)
[2020-12-31] MEDS: CYANOCOBALAMIN 1,000 MCG TABLET PO SCH (08:16)
[2020-12-31] MEDS: MULTIVITAMINS,THERAPEUTIC TABLET PO SCH (08:16)
[2020-12-31] MEDS: ATENOLOL 25 MG TABLET PO SCH (08:16)
[2020-12-31] MEDS: ASCORBIC ACID 250 MG TABLET PO SCH (08:16)
[2020-12-31] MEDS: ZINC SULFATE 220 MG CAPSULE PO SCH (08:17)
[2020-12-31] MEDS: MUPIROCIN 2% OINT 22 GM TUBE TP SCH ×2 (08:17→21:00)
--- NOTE | 2020-12-31 09:23 | NUR ---
patient's systolic blood pressure has been noted above 160s, administered morning dose tenormin 25mg, rechecked blood pressure still systolic 175, called dr dewey office for advise spoke to justine dewey is in the procedure, she is going to let doctor zuleima know about it.
--- NOTE | 2020-12-31 11:00 | NUR ---
Patient is alert, oriented x4, no sob, resp even nonlabored, skin warm and dry to touch, ambulatory, patient left for angiogram of right leg in [place], [facility] sent with patient, patient blood pressure reported to dr del cid, with no orders, patient denied any symptoms such as no dizzi, or headache. family is aware as well that patient is going for angiogram to day [facility]
[2020-12-31] MEDS: VANCOMYCIN IV 1,250 MG in IV DEXTROSE 5% 250 ML IV SCH (16:59)
--- NOTE | 2020-12-31 17:00 | NUR ---
patient is out of pass for angiogram in [facility]
[2020-12-31] MEDS: GLUCERNA SHAKE 237 ML CAN PO SCH (21:00)
[2020-12-31] MEDS: ATORVASTATIN 40 MG TABLET PO SCH (21:00)
--- NOTE | 2021-01-01 03:01 | NUR ---
Not in the unit at this time. Still out on pass for an scheduled procedure.
[2021-01-01] MEDS: BLOOD SUGAR DIAGNOSTIC 1 EACH STRIP VI SCH ×4 (06:20→21:22)
[2021-01-01] MEDS: FAMOTIDINE 20 MG TABLET PO SCH (09:00)
[2021-01-01] MEDS: CYANOCOBALAMIN 1,000 MCG TABLET PO SCH (09:00)
[2021-01-01] MEDS: ATENOLOL 25 MG TABLET PO SCH (09:00)
[2021-01-01] MEDS: MULTIVITAMINS,THERAPEUTIC TABLET PO SCH (09:00)
[2021-01-01] MEDS: MIRALAX 17 GM POWD.PACK PO SCH (09:00)
[2021-01-01] MEDS: MUPIROCIN 2% OINT 22 GM TUBE TP SCH ×2 (09:00→21:23)
[2021-01-01] MEDS: ASCORBIC ACID 250 MG TABLET PO SCH (09:00)
[2021-01-01] MEDS: ZINC SULFATE 220 MG CAPSULE PO SCH (09:00)
[2021-01-01] MEDS: VANCOMYCIN IV 1,250 MG in IV DEXTROSE 5% 250 ML IV SCH (17:00)
--- NOTE | 2021-01-01 18:46 | NUR ---
Pt remained off unit for entirety of shift. Pt out on pass for Balloon Angioplasty at [facility]. Pt will return this evening, pickup time 1830. Received report from January at [facility]. Will endorse to night coordinator nurse.
[2021-01-01 20:30] VITALS: BP 155/81
[2021-01-01] MEDS: ATORVASTATIN 40 MG TABLET PO SCH (21:22)
[2021-01-01] MEDS: INSULIN REGULAR, HUMAN 300 UNIT/3 ML VIAL SQ PRN (21:23)
[2021-01-01] MEDS: GLUCERNA SHAKE 237 ML CAN PO SCH (21:23)
--- NOTE | 2021-01-01 22:15 | NUR ---
Pt back on the unit via [place] form [facility] @1999 s/p Right popliteal artery Balloon angioplasty by Dr. Soriano 12/31, tolerated well. Received pt resting in bed. AAO x4. No acute distress noted. C/o 03/23 pain, Administered Dilaudid PRN, effective. IV 20 G right hand, patent and intact. Scheduled Vancomycin was given @ [facility]. All due medications administered and tolerated well. BS 215, covered per insulin sliding scale. Safety measures maintained. Needs attended to promptly. Per nurse endorsement wound consult ordered. VSS. Right upper PICC line not able to flush. Will continue plan of care.
[2021-01-01] MEDS: HYDROMORPHONE HCL 2 MG TABLET PO PRN (22:31)
[2021-01-01] MEDS ORDERED: IV D5/ 0.9% NACL 1,000 ML IV PRN (22:45)
[2021-01-02 04:15] VITALS: BP 158/77
[2021-01-02] MEDS: GLIMEPIRIDE 2 MG TABLET PO SCH ×2 (06:15→15:33)
[2021-01-02] MEDS: BLOOD SUGAR DIAGNOSTIC 1 EACH STRIP VI SCH ×4 (06:20→20:32)
[2021-01-02 08:00] VITALS: BP_SYST 167; BP_SYST 179; BP_DIAS 76; BP_DIAS 90
[2021-01-02] MEDS: INSULIN REGULAR, HUMAN 300 UNIT/3 ML VIAL SQ PRN ×4 (08:06→20:35)
[2021-01-02] MEDS: ZINC SULFATE 220 MG CAPSULE PO SCH (08:07)
[2021-01-02] MEDS: MULTIVITAMINS,THERAPEUTIC TABLET PO SCH (08:07)
[2021-01-02] MEDS: MIRALAX 17 GM POWD.PACK PO SCH (08:07)
[2021-01-02] MEDS: FAMOTIDINE 20 MG TABLET PO SCH (08:07)
[2021-01-02] MEDS: CYANOCOBALAMIN 1,000 MCG TABLET PO SCH (08:07)
[2021-01-02] MEDS: ASCORBIC ACID 250 MG TABLET PO SCH (08:09)
[2021-01-02] MEDS: ATENOLOL 25 MG TABLET PO SCH (08:16)
[2021-01-02] MEDS: MUPIROCIN 2% OINT 22 GM TUBE TP SCH ×2 (08:32→20:36)
--- NOTE | 2021-01-02 09:49 | NUR ---
Received pt in bed, A&Ox4, able to verbalize needs in Danish and Slovak. No acute distress. Pt denies pain at this time. R hand 20 g PIV patent and intact. Due medications given per order, no a/r noted. Dr. Lemus aware of pt's return from [facility], new orders in place, will carry out. Pt safely assisted to restroom with PT. Safety measures and fall precautions in place. Call light and belongings within reach. Will continue to monitor.
--- NOTE | 2021-01-02 11:29 | NUR ---
WOUND CARE CONSULT: PT PRESENTS WITH BONY SACRAL AREA AND SACRAL DIMPLE (NOTED TO BE PRESENT ON ADMISSION. PT ALSO HAS SURGICAL SITE TO RT GREAT TOE AND DRY BLACK NECROTIC TISSUE TO PLANTAR RT FOOT, PRESENT ON ADMISSION. ORDERS CLARIFIED WITH DR LOPEZ FOR WOUND CARE OF RT FOOT. RECOMMENDATIONS MADE FOR SKIN PROTECTION. DISCUSSED WITH NURSING STAFF. IN AGREEMENT WITH PLAN OF CARE. Addendum: 01/02/21 at 1131 by LAURA AHMADI RN Amended: Links added.
[2021-01-02 12:00] VITALS: BP 151/84
[2021-01-02] MEDS: HYDROMORPHONE HCL 2 MG TABLET PO PRN (12:09)
--- NOTE | 2021-01-02 13:00 | NUR ---
Per pt's , pt would like a shower. Confirmed with Katty Ramirez and Michael that pt may shower as long as right foot is covered with watertight seal, both in agreement. Will endorse to OT that pt may shower today.
[2021-01-02 16:00] VITALS: BP 157/83
[2021-01-02] MEDS: VANCOMYCIN IV 1,250 MG in IV DEXTROSE 5% 250 ML IV SCH (16:26)
--- NOTE | 2021-01-02 16:47 | NUR ---
ID CLOTH PRINTING BACK TENDER Rubina Lovell at bedside this afternoon, notified CLOTH PRINTING BACK TENDER that PICC is no longer flushing. Per CLOTH PRINTING BACK TENDER, OK for PICC underliner to declog PICC line, order in place. College And Career Counselor notified per protocol.
--- NOTE | 2021-01-02 18:36 | NUR ---
EOSS: Pt is bed, no acute distress, at bedside. Discussed nursing care with pt and . All needs met. Pt denies pain/discomfort at this time. Due medications given per order, no a/r noted. Pt received shower with OT today. Wound care provided per order, photos taken, both heels offloaded. Dr. Hedy HOFFMANN at bedside this afternoon, spoke with pt and , new orders in place. Notified Dr. Lemus of pts BP of 167/76 and 157/83 today, new order in place. Call light and belongings within reach. Safety measures maintained. Will endorse care to bicycle designer nurse.
--- NOTE | 2021-01-02 19:40 | NUR ---
In bed, awake, alert and oriented, watching TV at this time. Calm, denies any pain/discomforts at this time. Right foot dressing dry and intact, elevated with pillow. Safety measures and fall prevention maintained. Continue plan of care.
[2021-01-02 20:00] VITALS: BP 150/76
[2021-01-02] MEDS: ATORVASTATIN 40 MG TABLET PO SCH (20:28)
[2021-01-02] MEDS: GLUCERNA SHAKE 237 ML CAN PO SCH (20:29)
[2021-01-03] VITALS (9 sets, daily range): BP systolic 142–174; BP diastolic 69–92
--- NOTE | 2021-01-03 05:47 | NUR ---
Shift End Report: VS stable. Slept well. All needs attended and met. No complaint presented. No significant event reported all night. Continue current rehab plan of care.
[2021-01-03 06:01] LABS: CREATININE 1.2 mg/dL (0.6-1.3); POTASSIUM 3.9 mmol/L (3.5-5.1)
[2021-01-03 06:11] LABS: BASOPHILS # (AUTO) 0.1 K/uL (0.0-8.0); BASOPHILS % (AUTO) 1.5 % (0.0-2.0); EOSINOPHILS # (AUTO) 0.2 K/uL (0.0-0.7); EOSINOPHILS % (AUTO) 2.4 % (0.0-7.0); HEMATOCRIT 22.9 % (36.7-47.1); LYMPHOCYTES # (AUTO) 1.5 K/uL (20.0-40.0); LYMPHOCYTES % (AUTO) 19.6 % (20.5-51.5); MEAN CORPUSCULAR HEMOGLOBIN 24.5 uug (23.8-33.4); MEAN CORPUSCULAR HGB CONC 32 g/dL (32.5-36.3); MONOCYTES # (AUTO) 0.6 K/uL (2.0-10.0); MONOCYTES % (AUTO) 8.2 % (0.0-11.0); NEUTROPHILS # (AUTO) 5.1 K/uL (1.8-8.9); NEUTROPHILS % (AUTO) 68.3 % (38.5-71.5); PLATELET COUNT (AUTO) 515 K/uL (152-348); RED BLOOD CELL COUNT(AUTO) 3.02 MIL/uL (4.06-5.63); WHITE BLOOD COUNT (AUTO) 7.5 K/uL (3.6-10.2)
[2021-01-03 06:12] LABS: HEMOGLOBIN 7.4 g/dL (12.5-16.3)
[2021-01-03] MEDS: hydrALAZINE HCL 25 MG TABLET PO PRN ×2 (06:46→21:25)
[2021-01-03] MEDS: BLOOD SUGAR DIAGNOSTIC 1 EACH STRIP VI SCH ×4 (06:50→20:21)
[2021-01-03] MEDS: FAMOTIDINE 20 MG TABLET PO SCH (08:39)
[2021-01-03] MEDS: ATENOLOL 50 MG TABLET PO SCH (08:43)
[2021-01-03] MEDS: MULTIVITAMINS,THERAPEUTIC TABLET PO SCH (08:44)
[2021-01-03] MEDS: GLIMEPIRIDE 2 MG TABLET PO SCH ×2 (08:44→16:49)
[2021-01-03] MEDS: MIRALAX 17 GM POWD.PACK PO SCH (08:44)
[2021-01-03] MEDS: ZINC SULFATE 220 MG CAPSULE PO SCH (08:44)
[2021-01-03] MEDS: ASCORBIC ACID 250 MG TABLET PO SCH (08:44)
[2021-01-03] MEDS: CYANOCOBALAMIN 1,000 MCG TABLET PO SCH (08:44)
[2021-01-03] MEDS: MUPIROCIN 2% OINT 22 GM TUBE TP SCH ×2 (08:45→20:14)
[2021-01-03] MEDS: VANCOMYCIN IV 1,250 MG in IV DEXTROSE 5% 250 ML IV SCH (10:41)
[2021-01-03] MEDS: INSULIN REGULAR, HUMAN 300 UNIT/3 ML VIAL SQ PRN ×3 (11:34→21:01)
--- NOTE | 2021-01-03 16:30 | NUR ---
Patient in bed lying comfortably, BP rechecked 142/69 with no complain of any pain or discomfort.
--- NOTE | 2021-01-03 18:31 | NUR ---
Dr. Lemus in the unit, informed MD regarding hgb result of 7.4. Dr. Lemus ordered to transfuse 1 unit PRBC.
--- NOTE | 2021-01-03 19:40 | NUR ---
In bed, awake, alert, watching TV with daughter at this time in room. Denies any pain/discomforts at this time. Right foot dressing clean, dry and intact. Safety measures and fall prevention maintained. Continue care as planned.
[2021-01-03] MEDS: GLUCERNA SHAKE 237 ML CAN PO SCH (20:14)
[2021-01-03] MEDS: ATORVASTATIN 40 MG TABLET PO SCH (20:14)
--- NOTE | 2021-01-03 21:04 | NUR ---
Blood transfusion initiated as ordered. VS taken . Will monitor.
--- NOTE | 2021-01-03 23:30 | NUR ---
Blood transfusion completed without s/s of adverse reaction noted. Patient tolerated procedure well.
--- NOTE | 2021-01-04 | NUR ---
NPO after midnight initiated. Patient fully aware about the scheduled procedure.
[2021-01-04 04:00] VITALS: BP 166/72
[2021-01-04] MEDS: VANCOMYCIN IV 1,250 MG in IV DEXTROSE 5% 250 ML IV SCH ×2 (04:21→22:44)
[2021-01-04] MEDS: hydrALAZINE HCL 25 MG TABLET PO PRN (04:34)
--- NOTE | 2021-01-04 04:36 | NUR ---
BP 177/72. Denies any s/s of HTN. Apresoline 25 mg given with sips of water. Will monitor.
[2021-01-04 06:21] VITALS: BP 168/80
[2021-01-04] MEDS: BLOOD SUGAR DIAGNOSTIC 1 EACH STRIP VI SCH ×4 (06:29→21:05)
--- NOTE | 2021-01-04 06:32 | NUR ---
Shift End Report. Kept NPO as ordered for right foot excision debridement for today. No complaint presented all night. Tolerated blood transfusion last night without s/s of adverse reaction. . All needs attended and met.
[2021-01-04] MEDS ORDERED: BACITRACIN 50,000 UNITS VIAL ONE (06:51)
[2021-01-04] MEDS ORDERED: LIDOCAINE HCL 1% 20 ML VIAL ONE (06:51)
[2021-01-04] MEDS ORDERED: MIDAZOLAM HCL 2 MG/2 ML VIAL ONE (07:26)
[2021-01-04] MEDS ORDERED: FENTANYL CITRATE 250 MCG/5 ML AMPUL ONE (07:27)
[2021-01-04] MEDS ORDERED: POLYMYXIN B SULFATE 500,000 UNITS, BACITRACIN 50,000 UNITS, NORMAL SALINE 20 ML MC ONE (07:45)
--- NOTE | 2021-01-04 07:47 | NUR ---
received patient AOx4 calm, cooperative , patient is scheduled for right toe debridement , patient on vancomiycin IV, on a piccline, patient BP was at 170/80 , MD aware and OR staff aware, patient last apresoline was given at 0430, patient appears to be in good spirit and prepared for his surgery, patient was picked up by OR staff Renetta , transferered to OR
[2021-01-04 08:00] VITALS: BP 175/82
[2021-01-04] MEDS ORDERED: BUPIVACAINE PF 0.5% 30 ML VIAL ONE (08:26)
[2021-01-04] MEDS: ASCORBIC ACID 250 MG TABLET PO SCH (09:00)
[2021-01-04] MEDS: GLIMEPIRIDE 2 MG TABLET PO SCH ×2 (09:00→16:04)
[2021-01-04] MEDS: CYANOCOBALAMIN 1,000 MCG TABLET PO SCH (09:00)
[2021-01-04] MEDS: MUPIROCIN 2% OINT 22 GM TUBE TP SCH ×2 (09:00→21:00)
[2021-01-04] MEDS: ATENOLOL 50 MG TABLET PO SCH (09:00)
[2021-01-04] MEDS: ZINC SULFATE 220 MG CAPSULE PO SCH (09:00)
[2021-01-04] MEDS: FAMOTIDINE 20 MG TABLET PO SCH (09:00)
[2021-01-04] MEDS: MULTIVITAMINS,THERAPEUTIC TABLET PO SCH (09:00)
[2021-01-04] MEDS: MIRALAX 17 GM POWD.PACK PO SCH (09:00)
[2021-01-04 11:13] VITALS: BP 158/83
[2021-01-04] MEDS: HYDROMORPHONE HCL 2 MG TABLET PO PRN ×2 (11:13→17:35)
--- NOTE | 2021-01-04 11:17 | NUR ---
patient returned from surgery, transferred via his Bed accompanied by 2 staff, patient alert, oriented x3, patient with PICC line on his LUIS ANTONIO and with right feet on wound vacc, S/P Right foot excisional debridement , called and notified MD with orders to resume previous orders and diet orders was resumed, patient verbalizes of pain and requested of pain medication, pain meds given , will continue monitor
[2021-01-04] MEDS: INSULIN REGULAR, HUMAN 300 UNIT/3 ML VIAL SQ PRN ×3 (11:48→21:02)
--- NOTE | 2021-01-04 14:58 | NUR ---
seen patient in the room attached to wound Vacc, non compliant with diet, patient eating some sandwich from his , educated patient regarding blood sugar control, will continue follow up
[2021-01-04 15:37] VITALS: BP 152/82
--- NOTE | 2021-01-04 16:38 | NUR ---
RECEIVED REPORT FROM ALFONZO MAGANA. PATIENT IN BED AWAKE AND AOX4. PATIENT RT. FOOT EDEMA PRESENT. RT. FOOT ELEVATED WITH PILLOW AND CONNECTED TO WOUND VAC PER ORDER. DRAINING SEROSANG. FLUID. PATIENT COMPLAINING OF RT. FOOT PAIN. SAFETY AND FALL PREVENTION IN PLACE. WILL CONTINUE TO MONITOR.
[2021-01-04] MEDS ORDERED: NALOXONE HCL 0.4 MG/ML AMPUL IV PRN (17:45)
[2021-01-04 20:27] VITALS: BP 176/83
[2021-01-04] MEDS: ATORVASTATIN 40 MG TABLET PO SCH (20:52)
[2021-01-04] MEDS: GLUCERNA SHAKE 237 ML CAN PO SCH (20:53)
[2021-01-04] MEDS: OXYCODONE HCL 10 MG TAB.SR.12H PO SCH (21:00)
[2021-01-04] MEDS ORDERED: HYDROMORPHONE 1 MG/1 ML DISP.SYRIN IV ONE (21:15)
--- NOTE | 2021-01-04 22:00 | NUR ---
Pt refused initial oxycontin and prefers dilaudid IV for pain. referred to dr Maldonado and ordered with one time dilaudid; educated pt and pt's daughter regarding pain management and breakthrough pain. needs attended.
--- NOTE | 2021-01-05 03:22 | NUR ---
pt's vanco trough is 21, vanco iv held; gave report to Hansa who will assume care.
--- NOTE | 2021-01-05 04:57 | NUR ---
aao x4 OOB to bedside commode wit supervision. BM noted. Voiding well in the urinal. denies any pain nor any discomfort. S/P right foot debridement, dressing clean dry and intact with hemovac in place draining serosanguinous drainage, Will monitor patient.Denies any pain at this time.
[2021-01-05 05:43] VITALS: BP 162/80
[2021-01-05] MEDS: HYDROMORPHONE HCL 2 MG TABLET PO PRN (05:48)
[2021-01-05 06:28] LABS: CREATININE 1.3 mg/dL (0.6-1.3)
[2021-01-05] MEDS: BLOOD SUGAR DIAGNOSTIC 1 EACH STRIP VI SCH ×4 (06:33→20:45)
--- NOTE | 2021-01-05 06:52 | NUR ---
End of shift notes: Patient complaining pain on the right foot medicated with dilaudid 4mg po as ordered. Daughter called requesting if patient can get IV Dilaudid for pain. Told her it was only one time dose that her father received since he was post debridement of the right foot 01/04/21 per MD's order. Patient will monitor for relief. BM noted this shift. Wound vac functioning well.
--- NOTE | 2021-01-05 07:25 | NUR ---
Received awake and watching tv, joking with nurse. Denies pain. Said he slept well due to pain medication given last night. IV intact and patent. Dressing on right foot intact, wound vac noted intact and draining. Patient is cooperative. Safety measures maintained. Kept comfortable. Will continue to monitor.
[2021-01-05 08:00] VITALS: BP 165/80
[2021-01-05] MEDS: CYANOCOBALAMIN 1,000 MCG TABLET PO SCH (08:20)
[2021-01-05] MEDS: MULTIVITAMINS,THERAPEUTIC TABLET PO SCH (08:20)
[2021-01-05] MEDS: FAMOTIDINE 20 MG TABLET PO SCH (08:21)
[2021-01-05] MEDS: GLIMEPIRIDE 2 MG TABLET PO SCH ×2 (08:21→16:44)
[2021-01-05] MEDS: OXYCODONE HCL 10 MG TAB.SR.12H PO SCH ×2 (08:21→20:42)
[2021-01-05] MEDS: ZINC SULFATE 220 MG CAPSULE PO SCH (08:21)
[2021-01-05] MEDS: ASCORBIC ACID 250 MG TABLET PO SCH (08:21)
[2021-01-05] MEDS: ATENOLOL 50 MG TABLET PO SCH (08:22)
[2021-01-05] MEDS: MIRALAX 17 GM POWD.PACK PO SCH (08:26)
[2021-01-05] MEDS ORDERED: PROPOFOL 200 MG/20 ML BOTTLE IV ONE (11:41)
[2021-01-05] MEDS ORDERED: METOCLOPRAMIDE HCL 10 MG/2 ML VIAL IV ONE (11:41)
[2021-01-05] MEDS ORDERED: ONDANSETRON 4 MG/2 ML VIAL IV ONE (11:41)
[2021-01-05] MEDS ORDERED: SEVOFLURANE 250 ML BOTTLE IH ONE (11:41)
[2021-01-05] MEDS ORDERED: CEFAZOLIN 1 G VIAL MC ONE (11:41)
[2021-01-05] MEDS: INSULIN REGULAR, HUMAN 300 UNIT/3 ML VIAL SQ PRN ×3 (11:59→20:49)
[2021-01-05] MEDS: VANCOMYCIN IV 1,500 MG in IV DEXTROSE 5% 500 ML IV SCH (12:13)
[2021-01-05 16:00] VITALS: BP 155/73
--- NOTE | 2021-01-05 18:53 | NUR ---
Patient is alert and oriented. Denies pain. Visited by his daughter this afternoon, spoke with Dr. Ramirez, no complaints. Due meds given and tolerated. Wound vac functioning properly. Patient education given regarding keeping blood sugar wnl. Patient verbalized understanding. Needs attended. Safety precautions in place. Will endorse accordingly.
[2021-01-05 19:49] VITALS: BP 165/77
[2021-01-05] MEDS: ATORVASTATIN 40 MG TABLET PO SCH (20:42)
[2021-01-05] MEDS: GLUCERNA SHAKE 237 ML CAN PO SCH (21:08)
--- NOTE | 2021-01-05 21:12 | NUR ---
Patient in resting in bed. AALOx4. On Ra saturating well.c/o pain on right foot with dressing intact s/p amputation with wound vac functioning well.Routine pain medication given with good effect.Midline on right upper arm patent and intact.Continue safety measures .Call light with in reach.
[2021-01-06] MEDS: hydrALAZINE HCL 25 MG TABLET PO PRN (01:03)
[2021-01-06 05:20] VITALS: BP 159/75
[2021-01-06] MEDS: BLOOD SUGAR DIAGNOSTIC 1 EACH STRIP VI SCH ×4 (06:33→20:15)
[2021-01-06 06:42] LABS: BASOPHILS # (AUTO) 0.1 K/uL (0.0-8.0); BASOPHILS % (AUTO) 1.3 % (0.0-2.0); EOSINOPHILS # (AUTO) 0.3 K/uL (0.0-0.7); EOSINOPHILS % (AUTO) 3.6 % (0.0-7.0); HEMATOCRIT 24.8 % (36.7-47.1); HEMOGLOBIN 8.1 g/dL (12.5-16.3); LYMPHOCYTES # (AUTO) 1.5 K/uL (20.0-40.0); LYMPHOCYTES % (AUTO) 20.5 % (20.5-51.5); MEAN CORPUSCULAR HEMOGLOBIN 25.5 uug (23.8-33.4); MEAN CORPUSCULAR HGB CONC 33 g/dL (32.5-36.3); MEAN CORPUSCULAR VOLUME 77.9 fL (73.0-96.2); MONOCYTES # (AUTO) 1.4 K/uL (2.0-10.0); MONOCYTES % (AUTO) 19.4 % (0.0-11.0); NEUTROPHILS # (AUTO) 4.1 K/uL (1.8-8.9); NEUTROPHILS % (AUTO) 55.2 % (38.5-71.5); PLATELET COUNT (AUTO) 361 K/uL (152-348); RED BLOOD CELL COUNT(AUTO) 3.18 MIL/uL (4.06-5.63); WHITE BLOOD COUNT (AUTO) 7.4 K/uL (3.6-10.2)
[2021-01-06 06:48] LABS: BILIRUBIN,TOTAL 0.2 mg/dL (0.2-1.0); CREATININE 1.3 mg/dL (0.6-1.3); PHOSPHOROUS 3.8 mg/dL (2.5-4.9); POTASSIUM 3.8 mmol/L (3.5-5.1); TOTAL PROTEIN, SERUM 6.7 g/dL (6.4-8.2)
--- NOTE | 2021-01-06 07:35 | NUR ---
Alert and oriented x4, awake watching tv. Mild discomfort only during movement. Slept well per patient. Right foot dressing and wound vac intact and functioning properly. LUIS ANTONIO picc line intact and patent. No signs of infiltration. Bed is low and locked. Patient is comfortable. Call light in reach. Will monitor.
[2021-01-06 08:01] LABS: EOSINOPHILS % (MANUAL) 6 % (0-8); LYMPHOCYTES % (MANUAL) 34 % (20-40); MONOCYTES % (MANUAL) 4 % (2-10); MYELOCYTES % 1 % (0-0); NEUTROPHILS % (MANUAL) 55 % (42-75)
[2021-01-06] MEDS: ATENOLOL 50 MG TABLET PO SCH (08:12)
[2021-01-06 08:13] VITALS: BP 186/86
[2021-01-06] MEDS: ZINC SULFATE 220 MG CAPSULE PO SCH (08:13)
[2021-01-06] MEDS: GLIMEPIRIDE 2 MG TABLET PO SCH ×2 (08:13→16:51)
[2021-01-06] MEDS: CYANOCOBALAMIN 1,000 MCG TABLET PO SCH (08:13)
[2021-01-06] MEDS: FAMOTIDINE 20 MG TABLET PO SCH (08:13)
[2021-01-06] MEDS: OXYCODONE HCL 10 MG TAB.SR.12H PO SCH ×2 (08:14→20:10)
[2021-01-06] MEDS: MULTIVITAMINS,THERAPEUTIC TABLET PO SCH (08:14)
[2021-01-06] MEDS: MIRALAX 17 GM POWD.PACK PO SCH (08:14)
[2021-01-06] MEDS: ASCORBIC ACID 250 MG TABLET PO SCH (08:14)
[2021-01-06] MEDS: INSULIN REGULAR, HUMAN 300 UNIT/3 ML VIAL SQ PRN ×3 (11:48→20:29)
[2021-01-06] MEDS: VANCOMYCIN IV 1,500 MG in IV DEXTROSE 5% 500 ML IV SCH (11:48)
[2021-01-06 15:41] VITALS: BP 165/73
--- NOTE | 2021-01-06 16:20 | NUR ---
BP 165/73. No s/sx of htn. Verbalized he's fine but having some pain in the right foot. Rechecked bp noted 123/81.
[2021-01-06 16:30] VITALS: BP 123/81
[2021-01-06] MEDS: HYDROMORPHONE HCL 2 MG TABLET PO PRN (16:52)
--- NOTE | 2021-01-06 19:15 | NUR ---
Alert and oriented, denies pain. Voiding well in urinal yellow urine. Wound vac intact and working properly. Iv intact and patent. No adverse reaction noted. Bed is low and locked. Call light and personal belongings in reach. Needs attended. Endorsed accordingly.
[2021-01-06] MEDS: GLUCERNA SHAKE 237 ML CAN PO SCH (20:08)
[2021-01-06] MEDS: ATORVASTATIN 40 MG TABLET PO SCH (20:08)
[2021-01-06 20:20] VITALS: BP 157/77
[2021-01-07 04:26] VITALS: BP 155/73
[2021-01-07] MEDS: hydrALAZINE HCL 25 MG TABLET PO PRN ×3 (04:37→20:41)
[2021-01-07 05:15] VITALS: BP 146/67
--- NOTE | 2021-01-07 06:28 | NUR ---
Pt slept throughout the night, denies pain at this time. Wound VAC on right foot patent and draining serosanguineous fluid. Denies any discomfort. B/P was elevated at 0400H vitals so Hydralazine was given, pt tolerated well. Bed is locked and in lowest position, call light within reach. No other issues or concerns at this time, will endorse to day shift.
[2021-01-07] MEDS: BLOOD SUGAR DIAGNOSTIC 1 EACH STRIP VI SCH ×4 (06:35→20:14)
[2021-01-07 06:53] LABS: CREATININE 1.4 mg/dL (0.6-1.3); POTASSIUM 3.8 mmol/L (3.5-5.1)
[2021-01-07] MEDS: ZINC SULFATE 220 MG CAPSULE PO SCH (08:22)
[2021-01-07] MEDS: MULTIVITAMINS,THERAPEUTIC TABLET PO SCH (08:22)
[2021-01-07] MEDS: FAMOTIDINE 20 MG TABLET PO SCH (08:22)
[2021-01-07] MEDS: ASCORBIC ACID 250 MG TABLET PO SCH (08:23)
[2021-01-07] MEDS: CYANOCOBALAMIN 1,000 MCG TABLET PO SCH (08:23)
[2021-01-07] MEDS: MIRALAX 17 GM POWD.PACK PO SCH (08:23)
[2021-01-07] MEDS: GLIMEPIRIDE 2 MG TABLET PO SCH ×2 (08:23→16:49)
[2021-01-07] MEDS: OXYCODONE HCL 10 MG TAB.SR.12H PO SCH ×2 (08:25→20:08)
[2021-01-07] MEDS: ATENOLOL 50 MG TABLET PO SCH (08:27)
[2021-01-07 09:58] VITALS: BP 145/72
[2021-01-07] MEDS: VANCOMYCIN IV 1,500 MG in IV DEXTROSE 5% 500 ML IV SCH (11:52)
[2021-01-07] MEDS: INSULIN REGULAR, HUMAN 300 UNIT/3 ML VIAL SQ PRN ×3 (11:56→20:16)
--- NOTE | 2021-01-07 14:19 | NUR ---
WOUND CARE CONSULT: RT FOOT [facility] WOUND VAC DRESSING CHANGE DONE PER DPM ORDER: SKIN PREP AND VAC DRAPE TO PERIWOUND AREAS, SUTURE AREAS PROTECTED WITH OIL EMULSION DSG, GRANUFOAM TO WOUND (2 PIECES USED). VAC AT 125mm Hg CONTINUOUS SETTING. ABD PADS USED WITH KERLIX (TUBING PROTECTED). PT TOLERATED WELL. WILL FOLLOW.
[2021-01-07 15:40] VITALS: BP 181/92
--- NOTE | 2021-01-07 17:33 | NUR ---
Informed Dr. Lemus regarding elevated BP 181/92 given PRN Apresoline as ordered but BP remained elevated 181/83. Dr. Lemus ordered Norvasc 5mg PO Q12hrs first dose now.
[2021-01-07] MEDS: AMLODIPINE 5 MG TABLET PO SCH ×3 (17:48→22:18)
[2021-01-07] MEDS: ATORVASTATIN 40 MG TABLET PO SCH (20:08)
[2021-01-07 20:12] VITALS: BP 164/87
[2021-01-07] MEDS: GLUCERNA SHAKE 237 ML CAN PO SCH (20:13)
[2021-01-07 22:10] VITALS: BP 159/77
[2021-01-08 04:12] VITALS: BP 153/66
--- NOTE | 2021-01-08 05:33 | NUR ---
Pt slept throughout the night with no complaints. Denies having SOB at this time. B/P elevated at beginning of shift so PRN Apresoline given to patient. B/P went down to 159/77. Denies chest pain or headaches at this time, states that this is his baseline when not in the hospital. Wound VAC intact on patient's R foot. PICC line flushed and patent. Bed is locked and in lowest position, call light within reach. No other issues or concerns at this time, will endorse to day shift.
[2021-01-08] MEDS: hydrALAZINE HCL 25 MG TABLET PO PRN (06:04)
[2021-01-08] MEDS: BLOOD SUGAR DIAGNOSTIC 1 EACH STRIP VI SCH ×4 (06:39→21:05)
[2021-01-08 06:47] VITALS: BP 149/74
[2021-01-08 07:31] VITALS: BP 153/77
[2021-01-08] MEDS: AMLODIPINE 5 MG TABLET PO SCH ×2 (09:27→20:54)
[2021-01-08] MEDS: ZINC SULFATE 220 MG CAPSULE PO SCH (09:27)
[2021-01-08] MEDS: MULTIVITAMINS,THERAPEUTIC TABLET PO SCH (09:28)
[2021-01-08] MEDS: ASCORBIC ACID 250 MG TABLET PO SCH (09:28)
[2021-01-08] MEDS: CYANOCOBALAMIN 1,000 MCG TABLET PO SCH (09:28)
[2021-01-08] MEDS: ATENOLOL 50 MG TABLET PO SCH (09:28)
[2021-01-08] MEDS: MIRALAX 17 GM POWD.PACK PO SCH (09:28)
[2021-01-08] MEDS: GLIMEPIRIDE 2 MG TABLET PO SCH ×2 (09:28→17:22)
[2021-01-08] MEDS: FAMOTIDINE 20 MG TABLET PO SCH (09:28)
[2021-01-08] MEDS: OXYCODONE HCL 10 MG TAB.SR.12H PO SCH ×2 (09:30→20:55)
[2021-01-08] MEDS: INSULIN REGULAR, HUMAN 300 UNIT/3 ML VIAL SQ PRN ×3 (12:35→21:09)
--- NOTE | 2021-01-08 12:36 | NUR ---
WOUND CARE FOLLOW UP: KCI VAC TO RT FOOT FUNCTIONING WELL AT 125mmHg CONTINUOUS SETTING. NEXT DRESSING CHANGE PLANNED FOR TOMORROW.
[2021-01-08 15:44] VITALS: BP 127/70
[2021-01-08] MEDS ORDERED: VANCOMYCIN IV 1,250 MG in IV DEXTROSE 5% 250 ML IV SCH (17:00)
--- NOTE | 2021-01-08 17:00 | NUR ---
Patient remains alert, oriented x 4, not in any form of distress. He denies any pain or discomfort. Vital signs stable. Patient participated with PT, OT and tolerated well. Assisted with his needs promptly. Call light and frequently used items placed within patient's reach. PICC line intact and patent, no signs of infections. Wound vac in place on right foot functioning well.
[2021-01-08] MEDS: ATORVASTATIN 40 MG TABLET PO SCH (20:54)
[2021-01-08] MEDS: GLUCERNA SHAKE 237 ML CAN PO SCH (20:57)
[2021-01-08 21:00] VITALS: BP 157/78
[2021-01-08 23:57] VITALS: BP 175/86
[2021-01-09 04:07] VITALS: BP 152/71
--- NOTE | 2021-01-09 05:12 | NUR ---
Received pt resting in bed. No acute distress noted. VSS. All due medication administered as scheduled. Unable to flush PICC line, charge nurse aware. C/o 6/10 pain, right toe. Administered scheduled OxyContin. Needs attend to Wound VAC intact on patient's R foot. PICC line flushed and patent. Safety measures in place. Will continue plan of care. .
[2021-01-09] MEDS: BLOOD SUGAR DIAGNOSTIC 1 EACH STRIP VI SCH ×4 (06:37→20:47)
[2021-01-09 07:33] VITALS: BP 148/77
[2021-01-09 08:28] LABS: BASOPHILS # (AUTO) 0.1 K/uL (0.0-8.0); BASOPHILS % (AUTO) 1.4 % (0.0-2.0); EOSINOPHILS # (AUTO) 0.3 K/uL (0.0-0.7); EOSINOPHILS % (AUTO) 3.9 % (0.0-7.0); HEMOGLOBIN 8.7 g/dL (12.5-16.3); LYMPHOCYTES # (AUTO) 1.4 K/uL (20.0-40.0); LYMPHOCYTES % (AUTO) 20.4 % (20.5-51.5); MEAN CORPUSCULAR HEMOGLOBIN 25.3 uug (23.8-33.4); MEAN CORPUSCULAR HGB CONC 32 g/dL (32.5-36.3); MEAN CORPUSCULAR VOLUME 78.2 fL (73.0-96.2); MONOCYTES # (AUTO) 1.9 K/uL (2.0-10.0); MONOCYTES % (AUTO) 28.2 % (0.0-11.0); NEUTROPHILS # (AUTO) 3.1 K/uL (1.8-8.9); NEUTROPHILS % (AUTO) 46.1 % (38.5-71.5); PLATELET COUNT (AUTO) 327 K/uL (152-348); RED BLOOD CELL COUNT(AUTO) 3.45 MIL/uL (4.06-5.63); WHITE BLOOD COUNT (AUTO) 6.8 K/uL (3.6-10.2)
[2021-01-09 08:42] LABS: BILIRUBIN,TOTAL 0.2 mg/dL (0.2-1.0); CREATININE 1.3 mg/dL (0.6-1.3); POTASSIUM 5.3 mmol/L (3.5-5.1); TOTAL PROTEIN, SERUM 7.5 g/dL (6.4-8.2)
[2021-01-09] MEDS: GLIMEPIRIDE 2 MG TABLET PO SCH ×2 (09:21→16:39)
[2021-01-09] MEDS: MULTIVITAMINS,THERAPEUTIC TABLET PO SCH (09:21)
[2021-01-09] MEDS: ZINC SULFATE 220 MG CAPSULE PO SCH (09:21)
[2021-01-09] MEDS: AMLODIPINE 5 MG TABLET PO SCH ×2 (09:21→20:44)
[2021-01-09] MEDS: ASCORBIC ACID 250 MG TABLET PO SCH (09:21)
[2021-01-09] MEDS: FAMOTIDINE 20 MG TABLET PO SCH (09:21)
[2021-01-09] MEDS: CYANOCOBALAMIN 1,000 MCG TABLET PO SCH (09:21)
[2021-01-09] MEDS: ATENOLOL 50 MG TABLET PO SCH (09:22)
[2021-01-09] MEDS: OXYCODONE HCL 10 MG TAB.SR.12H PO SCH ×2 (09:23→20:45)
[2021-01-09] MEDS: MIRALAX 17 GM POWD.PACK PO SCH (09:23)
--- NOTE | 2021-01-09 09:49 | NUR ---
DEVOPS DEVELOPER Jerome Vail at bedside, aware of pts lab values, new order in place. Notified DEVOPS DEVELOPER pts PICC line clogged, per DEVOPS DEVELOPER, OK for PICC line team to unclog line, order in place. Notified Hose Builder per protocol. Pt stable at this time, with PT in therpy. VSS. Due medications given per order. Wound Vac in place, draining. Safety maintained. Will carry out orders and continue to monitor.
[2021-01-09] MEDS ORDERED: SODIUM POLYSTYRENE SULFONATE 15 G/60 ML LIQUID UDC PO ONE (10:00)
[2021-01-09] MEDS: INSULIN REGULAR, HUMAN 300 UNIT/3 ML VIAL SQ PRN ×3 (12:31→20:51)
--- NOTE | 2021-01-09 12:32 | NUR ---
WOUND CARE FOLLOW UP: PT SEEN FOR RT FOOT WOUND VAC DRESSING CHANGE. DR HALLIAN IN TO SEE PT AND WOUND WAS DEBRIDED AT BEDSIDE. PT TOLERATED WELL. SKIN PREP AND VAC DRAPE USED FOR PERIWOUND AREAS. OIL EMULSION DRESSING APPLIED TO SUTURES ORDERED. 2 PIECES OF GRANUFOAM USED. VAC AT 125mmHg CONTINUOUS SETTING. ABD PADS AND KERLIX APPLIED, USING CARE NOT TO WRAP VAC TUBING. ORDERS RECEIVED FOR DRESSING CHANGE UPON DISCHARGE (REMOVE ALL VAC DRESSINGS AND APPLY SALINE-MOISTENED GAUZE, ABD PAD AND WRAP WITH KERLIX). DISCUSSED WITH NURSING STAFF. PT TOLERATED WELL.
--- NOTE | 2021-01-09 12:34 | NUR ---
Dr. Knott DPM at bedside this afternoon, R foot wound debridement performed DPM. Consent signed and placed in chart. Wound care nurse at bedside and changed Wound Vac per order. Photos taken for chart. Pt tolerated well, no complaints at this time. Continue to monitor.
--- NOTE | 2021-01-09 13:06 | NUR ---
Charge nurse able to unclog PICC line. HOSPICE MASSAGE THERAPIST Jerome aVil notified, order to unclog PICC cancelled. Electrochemist notified. Continue to monitor.
[2021-01-09 15:32] VITALS: BP 150/75
[2021-01-09 16:44] LABS: BAND % (MANUAL) 2 % (0-10); EOSINOPHILS % (MANUAL) 9 % (0-8); LYMPHOCYTES % (MANUAL) 12 % (20-40); MONOCYTES % (MANUAL) 15 % (2-10); NEUTROPHILS % (MANUAL) 62 % (42-75)
--- NOTE | 2021-01-09 17:23 | NUR ---
PICC line occluded at this time. MD Dr. Zapata notified. Per ALBERTO PATEL for PICC line team to assess site. If unable to unclog, new PICC may be inserted Per MD. PICC line team to come jennifer, Carbon Printer aware. Pt reported discomfort at L hand 22 gauge IV site. IV removed, catheter intact, no shearing noted. No redness, swelling, signs of infiltration noted. 1700 Vancomycin unable to be administered at this time d/t no working IV site, pharmacy notified.
[2021-01-09 18:34] VITALS: BP 161/80
[2021-01-09] MEDS: hydrALAZINE HCL 25 MG TABLET PO PRN (18:39)
[2021-01-09] MEDS: HYDROMORPHONE HCL 2 MG TABLET PO PRN (18:39)
--- NOTE | 2021-01-09 18:53 | NUR ---
End of shift note: Pt in no acute distress at this time. PICC team not on unit at this time, PICC line continues to be occluded. Pt reported 6/10 pain in right foot, PRN Dilaudid given per order. Pt's BP 161/80, HR 77. PRN Hydralazine administered per order. Pt received shower today with OT, tolerated well. Pt with possible discharge tomorrow. Will endorse care to ceramic engineer nurse.
[2021-01-09 20:09] VITALS: BP 144/70
--- NOTE | 2021-01-09 20:41 | NUR ---
PICC line insertion on KINJAL x 2 lumen done without any problem. PICC line intact and patent. Patient tolerated procedure well.
[2021-01-09] MEDS: GLUCERNA SHAKE 237 ML CAN PO SCH (20:45)
[2021-01-09] MEDS: ATORVASTATIN 40 MG TABLET PO SCH (20:45)
--- NOTE | 2021-01-09 20:53 | NUR ---
Chest Xray done at bedside as ordered for PICC line placement.
[2021-01-09] MEDS ORDERED: VANCOMYCIN IV 1,250 MG in IV DEXTROSE 5% 250 ML IV SCH (22:00)
[2021-01-10 04:12] VITALS: BP 154/71
[2021-01-10] MEDS: BLOOD SUGAR DIAGNOSTIC 1 EACH STRIP VI SCH ×2 (05:44→11:30)
--- NOTE | 2021-01-10 06:18 | NUR ---
Shift End Report: Vs stable. Slept good. No s/s of hypo/hyperglycemia. No s/s of adverse reaction noted from Vancomycin IV. KINJAL PICC line intact and patent. No significant event reported all night. All needs attended and met. Continue current rehab plan of care.
[2021-01-10 07:36] VITALS: BP 170/83
[2021-01-10] MEDS: FAMOTIDINE 20 MG TABLET PO SCH (08:16)
[2021-01-10] MEDS: AMLODIPINE 5 MG TABLET PO SCH (08:16)
[2021-01-10] MEDS: ZINC SULFATE 220 MG CAPSULE PO SCH (08:16)
[2021-01-10] MEDS: CYANOCOBALAMIN 1,000 MCG TABLET PO SCH (08:16)
[2021-01-10] MEDS: GLIMEPIRIDE 2 MG TABLET PO SCH (08:16)
[2021-01-10] MEDS: ASCORBIC ACID 250 MG TABLET PO SCH (08:16)
[2021-01-10] MEDS: MULTIVITAMINS,THERAPEUTIC TABLET PO SCH (08:16)
[2021-01-10] MEDS: OXYCODONE HCL 10 MG TAB.SR.12H PO SCH (08:17)
[2021-01-10] MEDS: ATENOLOL 50 MG TABLET PO SCH (08:17)
[2021-01-10] MEDS: MIRALAX 17 GM POWD.PACK PO SCH (08:27)
[2021-01-10] MEDS: INSULIN REGULAR, HUMAN 300 UNIT/3 ML VIAL SQ PRN (11:34)
[2021-01-10 14:57] VITALS: BP 139/60
--- NOTE | 2021-01-10 15:22 | NUR ---
d/c to [facility].transported via ambulance. report given to melissa gerard. explain need for f/u appt and phone number for md provided and f/u for drsg orders. phone number for md provided. explain to pt and caregiver. verbalized understanding. d/c pics taken yesterday by rajani
== END 2021-01-10 15:00 | DRG 862 ==
LOC: MEDSURG3 12-22 14:14
PROVIDERS: ADMIT Physical Medicine & Rehabilitation Pain Medicine; ATTEND Physical Medicine & Rehabilitation Pain Medicine
PROC: B548ZZA Ultrasonography of Superior Vena Cava, Guidance (ICD-10-PCS; principal; 2021-01-09)
PROC: 30233N1 Transfusion of Nonautologous Red Blood Cells into Peripheral Vein, Percutaneous Approach (ICD-10-PCS; principal; 2021-01-09)
PROC: 02HV33Z Insertion of Infusion Device into Superior Vena Cava, Percutaneous Approach (ICD-10-PCS; principal; 2021-01-09)
DX: Z47.81 Encounter for orthopedic aftercare following surgical amputation (principal); N17.0 Acute kidney failure with tubular necrosis; E43 Unspecified severe protein-calorie malnutrition; A41.9 Sepsis, unspecified organism; A48.0 Gas gangrene; D68.59 Other primary thrombophilia; E11.22 Type 2 diabetes mellitus with diabetic chronic kidney disease; E11.40 Type 2 diabetes mellitus with diabetic neuropathy, unspecified; F32.3 Major depressive disorder, single episode, severe with psychotic features; E11.52 Type 2 diabetes mellitus with diabetic peripheral angiopathy with gangrene; E11.69 Type 2 diabetes mellitus with other specified complication; M86.9 Osteomyelitis, unspecified; Z79.4 Long term (current) use of insulin; E66.9 Obesity, unspecified; Z89.411 Acquired absence of right great toe; D64.9 Anemia, unspecified; E11.621 Type 2 diabetes mellitus with foot ulcer; E11.65 Type 2 diabetes mellitus with hyperglycemia; E78.5 Hyperlipidemia, unspecified; E87.1 Hypo-osmolality and hyponatremia; I12.9 Hypertensive chronic kidney disease with stage 1 through stage 4 chronic kidney disease, or unspecified chronic kidney disease; N18.9 Chronic kidney disease, unspecified; K59.00 Constipation, unspecified; L97.519 Non-pressure chronic ulcer of other part of right foot with unspecified severity; Z68.28 Body mass index [BMI] 28.0-28.9, adult; Z87.891 Personal history of nicotine dependence; Z89.412 Acquired absence of left great toe; Z89.422 Acquired absence of other left toe(s); L02.611 Cutaneous abscess of right foot; E86.9 Volume depletion, unspecified; R53.1 Weakness; Z83.3 Family history of diabetes mellitus; D50.9 Iron deficiency anemia, unspecified; R23.3 Spontaneous ecchymoses; Z79.84 Long term (current) use of oral hypoglycemic drugs
CPT/HCPCS: 36415; 70030-TC; 71045; 73630; 76770; 83550; 83735; 83970; 84100; 84155; 84156; 84165; 84300; 84443; 85025; 85651; 85730; 86850; 86900; 86901; 86920; 87070; 87075; 87077; 87086; 93307; A4217; A4649; A4663; J0690; J0696; J1170; J1815; J2250; J2405; J2765; J3010; J3370; J3490; J7030; J7050; J7060; P9016-BL; P9021

== ENCOUNTER 2021-01-04 08:00 | Day surgery (SDC) | payer OTHER ==
[~2021-01-04 08:00] MED LIST: ACET-73 PO; ASCO500T10 PO; ATEN25TA PO; ATOR40TA PO; CYAN-51 PO; FAMO20TA8 PO; LISI20TA30 PO; METF-442 PO; MULT-594 PO; NUT.237L70 PO; OXYC5CAP18 PO; POLY119P2 PO; VANC750F IV; ZINC220T3 PO
== END 2021-01-04 11:00 | disposition still patient (30) ==
LOC: DS 08:00
PROVIDERS: ATTEND Podiatrist Foot & Ankle Surgery
DX: E11.621 Type 2 diabetes mellitus with foot ulcer (principal); I73.9 Peripheral vascular disease, unspecified; Z79.84 Long term (current) use of oral hypoglycemic drugs; Z79.899 Other long term (current) drug therapy; Z98.890 Other specified postprocedural states
CPT/HCPCS: 11042; 97605; J2250; J3010; A4649; A4663; J7050